=== PATIENT | male | born 1960 | race African-American/Black ===

== ENCOUNTER 2024-10-18 11:25 | Inpatient (IN) | payer OTHER ==
[~2024-10-18] VITALS: Ht 175.3 cm; Wt 94.5 kg
[2024-10-18 12:09] LABS: BASOPHILS % 0.6 % (0.0-2.0); EOSINOPHILS % 2.6 % (0.0-5.0); HEMATOCRIT. 38.3 % (42.0-52.0); HEMOGLOBIN. 13.1 g/dL (14.0-18.0); LYMPHOCYTES % 21.3 % (20.0-50.0); MEAN CORPUSCULAR HEMOGLOBIN 30.1 pg (28.0-32.0); MEAN CORPUSCULAR HGB CONC 34.1 g/dL (31.0-37.0); MEAN CORPUSCULAR VOLUME 88.3 fL (80.0-94.0); MEAN PLATELET VOLUME 7.3 fl (7.4-10.4); NEUTROPHILS % 63.5 % (40.0-76.0); PLATELET 243 x1000/uL (130-400); RED BLOOD CELL COUNT 4.34 mill/uL (4.7-6.1); RED CELL DISTRIBUTION WIDTH 13.4 % (11.6-14.6); WHITE BLOOD COUNT 5.7 x1000/uL (4.5-11.0)
[2024-10-18 12:15] LABS: CARBON DIOXIDE 30 mEq/L (21-32); CHLORIDE 107 mEq/L (98-107); POTASSIUM 3.9 mEq/L (3.5-5.1); SODIUM 139 mEq/L (136-145)
[2024-10-18 12:16] LABS: CALCIUM 9.1 mg/dL (8.7-10.4)
[2024-10-18 12:20] LABS: CREATININE 0.8 mg/dL (0.6-1.3)
[2024-10-18 12:21] LABS: ETHANOL BLOOD < 10 mg/dL (<10); GLUCOSE 143 mg/dL (70-105); UREA NITROGEN BLOOD 13 mg/dL (9-23)
[2024-10-18] MEDS: IOHEXOL-350 100 ML BOTTLE ONE (12:21)
[2024-10-18 12:22] LABS: ALANINE AMINOTRANSFERASE 20 IU/L (10-49); ASPARTATE AMINOTRANSFERASE 17 IU/L (<34)
[2024-10-18 12:23] LABS: ALBUMIN 4.2 g/dL (3.2-4.8); BILIRUBIN DIRECT 0.1 mg/dL (<=3.0); BILIRUBIN TOTAL 0.4 mg/dL (0.1-1.0); PROTEIN TOTAL 6.6 g/dL (6.0-8.3)
[2024-10-18 12:27] LABS: PROTHROMBIN TIME 10.9 sec (9.6-11.0)
[2024-10-18 12:31] LABS: TROPONIN I HIGH SENSITIVITY < 4 ng/L (3.0-53)
[2024-10-18 12:47] LABS: CLARITY URINE CLEAR (CLEAR); COLOR URINE YELLOW (YELLOW); GLUCOSE URINE NEGATIVE (NEGATIVE); KETONES URINE NEGATIVE (NEGATIVE); LEUKOCYTE ESTERASE URINE NEGATIVE (NEGATIVE); NITRITE URINE NEGATIVE (NEGATIVE); OCCULT BLOOD URINE NEGATIVE (NEGATIVE); PROTEIN URINE NEGATIVE (NEGATIVE); SPECIFIC GRAVITY URINE 1.007 (1.005-1.030)
[2024-10-18] MEDS: CLOPIDOGREL 75MG TABLET PO ONE (12:53)
[2024-10-18] MEDS: ASPIRIN 325MG TABLET PO ONE (12:54)
[2024-10-18 13:14] LABS: *AMPHETAMINES SCREEN URINE NEGATIVE (NEGATIVE); *BARBITURATES SCREEN URINE NEGATIVE (NEGATIVE); *BENZODIAZEPINES SCREEN URINE NEGATIVE (NEGATIVE); *COCAINE SCREEN URINE NEGATIVE (NEGATIVE); CANNABINOID URINE SCREEN NEGATIVE (NEGATIVE); ECSTASY MDMA SCREEN URINE NEGATIVE (NEGATIVE); METHADONE URINE SCREEN NEGATIVE (NEGATIVE); OPIATES URINE SCREEN NEGATIVE (NEGATIVE); PHENCYCLIDINE URINE SCREEN NEGATIVE (NEGATIVE)
[2024-10-18] MEDS ORDERED: IPRATROPIUM/ALBUTEROL 0.5-3(2.5)MG/3ML NEB HHN PRN (13:45)
[2024-10-18] MEDS ORDERED: MAGNESIUM/ALUMINUM HYDROXIDE/SIMETHICONE 30ML UDC PO PRN (13:45)
[2024-10-18] MEDS ORDERED: DOCUSATE SODIUM 100MG CAPSULE PO PRN (13:45)
[2024-10-18] MEDS ORDERED: ACETAMINOPHEN 325MG TABLET PO PRN ×2 (13:45)
[2024-10-18] MEDS ORDERED: DIPHENHYDRAMINE 50MG/ML VIAL IV PRN (13:45)
[2024-10-18] MEDS ORDERED: GUAIFENESIN 200MG/10ML SUGAR FREE UDC PO PRN (13:45)
[2024-10-18] MEDS ORDERED: ONDANSETRON HCL 4MG/2ML INJ IV PRN (13:45)
[2024-10-18] MEDS ORDERED: CLONIDINE 0.1MG TABLET PO PRN (13:45)
[2024-10-18] MEDS ORDERED: HYDRALAZINE 10 MG in SODIUM CHLORIDE 0.9% 49.5 ML IV PRN (14:00)
[2024-10-18] MEDS ORDERED: NIFEDIPINE XL 60MG TAB PO SCH (14:00)
[2024-10-18 16:00] VITALS: BP 150/75; PULSE 77; RESP 19; TEMP 36.4; O2SAT 99
[2024-10-18 18:41] LABS: CREATINE KINASE MB FRACTION 1.8 ng/mL (0.5-3.6)
[2024-10-18 18:42] LABS: CREATINE KINASE 134 IU/L (46-171)
[2024-10-18 18:50] LABS: TROPONIN I HIGH SENSITIVITY < 4 ng/L (3.0-53)
[2024-10-18] MEDS ORDERED: HYDRALAZINE 20MG/ML VIAL IV PRN (19:15)
[2024-10-18] MEDS: PANTOPRAZOLE SODIUM 40 MG/VIAL IV SCH (19:19)
[2024-10-18] MEDS: AMLODIPINE 5MG TABLET PO SCH (19:20)
[2024-10-18 20:00] VITALS: BP 137/66; PULSE 79; RESP 19; TEMP 36.5; O2SAT 95
[2024-10-18] MEDS: ATORVASTATIN CALCIUM 40MG TABLET PO SCH (20:23)
[2024-10-18 22:17] LABS: TROPONIN I HIGH SENSITIVITY < 4 ng/L (3.0-53)
[2024-10-19 00:06] VITALS: BP 133/73; PULSE 74; RESP 18; TEMP 36.8; O2SAT 97
[2024-10-19 04:00] VITALS: BP 143/72; PULSE 70; RESP 18; TEMP 36.4; O2SAT 96
[2024-10-19 07:16] LABS: CREATINE KINASE MB FRACTION 1.1 ng/mL (0.5-3.6)
[2024-10-19 07:17] LABS: CALCIUM 9.1 mg/dL (8.7-10.4); CHLORIDE 107 mEq/L (98-107); POTASSIUM 3.9 mEq/L (3.5-5.1); SODIUM 140 mEq/L (136-145)
[2024-10-19 07:18] LABS: CARBON DIOXIDE 27 mEq/L (21-32)
[2024-10-19 07:18] LABS: BASOPHILS % 0.3 % (0.0-2.0); HEMATOCRIT. 39.1 % (42.0-52.0); HEMOGLOBIN. 13.4 g/dL (14.0-18.0); LYMPHOCYTES % 15.9 % (20.0-50.0); MEAN CORPUSCULAR HEMOGLOBIN 30.2 pg (28.0-32.0); MEAN CORPUSCULAR HGB CONC 34.2 g/dL (31.0-37.0); MEAN CORPUSCULAR VOLUME 88.3 fL (80.0-94.0); MEAN PLATELET VOLUME 7.6 fl (7.4-10.4); MONOCYTES % 12.1 % (2.0-8.0); NEUTROPHILS % 68.7 % (40.0-76.0); PLATELET 238 x1000/uL (130-400); RED BLOOD CELL COUNT 4.43 mill/uL (4.7-6.1); RED CELL DISTRIBUTION WIDTH 12.9 % (11.6-14.6)
[2024-10-19 07:20] LABS: T4 FREE 1.14 ng/dL (0.89-1.76); THYROID STIMULATING HORMONE 1.22 uIU/mL (0.55-4.78)
[2024-10-19 07:23] LABS: CREATININE 0.8 mg/dL (0.6-1.3); GLUCOSE 113 mg/dL (70-105); TRIGLYCERIDE 76 mg/dL (0-150); UREA NITROGEN BLOOD 14 mg/dL (9-23)
[2024-10-19 07:24] LABS: LDL CHOLESTEROL 84 mg/dL (5-100)
[2024-10-19 07:25] LABS: CHOLESTEROL 140 mg/dL (<200); CREATINE KINASE 123 IU/L (46-171); HDL CHOLESTEROL 36 mg/dL (>55)
[2024-10-19 08:00] VITALS: BP 149/74; PULSE 73; RESP 20; TEMP 36.7; O2SAT 98
[2024-10-19 08:01] LABS: TROPONIN I HIGH SENSITIVITY < 4 ng/L (3.0-53)
[2024-10-19] MEDS: CLOPIDOGREL 75MG TABLET PO SCH (09:06)
[2024-10-19] MEDS: ASPIRIN 81MG TABLET PO SCH (09:06)
[2024-10-19 09:12] LABS: HEPATITIS B SURFACE ANTIGEN NEGATIVE (Negative)
[2024-10-19 09:33] LABS: HEPATITIS C AB NON REACTIVE (Neg) (Negative)
[2024-10-19 12:00] VITALS: BP 147/72; PULSE 76; RESP 18; TEMP 36.7; O2SAT 97
[2024-10-19 15:59] VITALS: BP 147/72; PULSE 76; TEMP 98.1; O2SAT 98
[2024-10-19 16:00] VITALS: BP 146/79; PULSE 77; RESP 20; TEMP 36.8; O2SAT 97
== END 2024-10-19 16:40 | disposition home or self-care (01) | DRG 69 ==
LOC: ER 11:25 → 7WST 12:50 → EDBEDREQTM 12:56 → EDBEDREQ 12:56 → ENRESERV 13:59
PROVIDERS: ADMIT Internal Medicine; ATTEND Internal Medicine
DX: G45.9 Transient cerebral ischemic attack, unspecified (principal); I10 Essential (primary) hypertension; D64.9 Anemia, unspecified; E78.5 Hyperlipidemia, unspecified; E11.9 Type 2 diabetes mellitus without complications; Z79.899 Other long term (current) drug therapy
CPT/HCPCS: 36415; 70496; 70498; 70551; 71045; 80048; 80061; 80076; 80305; 80320; 81003; 82550; 82553; 83036; 83880; 84439; 84443; 84484; 85025; 86705; 87340; 93005; 93970; 99291; J2470; Q9967; G0480